=== PATIENT | female | born 1995 | race Caucasian/White ===

== ENCOUNTER 2016-10-25 10:57 | Emergency (ER) | payer OTHER ==
[~2016-10-25] VITALS: Ht 160 cm; Wt 82.2 kg
[2016-10-25 10:58] VITALS: BP 121/83
[2016-10-25] MEDS ORDERED: NAPR500T PO (11:57)
[2016-10-25] MEDS ORDERED: BACT800T5 PO (11:57)
[2016-10-25] MEDS ORDERED: NAPROXEN 250 MG TAB PO ONE (12:00)
[2016-10-25] MEDS ORDERED: BACTRIM 160MG/800MG DS TAB PO ONE (12:00)
== END 2016-10-25 12:13 | disposition home or self-care (01) ==
LOC: M ED 10:57
DX: L03.031 Cellulitis of right toe (principal); Z87.891 Personal history of nicotine dependence; Z79.899 Other long term (current) drug therapy; Z88.0 Allergy status to penicillin

== ENCOUNTER 2016-11-28 15:44 | Emergency (ER) | payer OTHER ==
[~2016-11-28] VITALS: Ht 160 cm; Wt 77.2 kg
[2016-11-28 15:44] VITALS: BP 112/77
[~2016-11-28 15:44] MED LIST: BACT800T5 PO; NAPR500T PO
== END 2016-11-28 19:04 | disposition left against medical advice (07) ==
LOC: M ED 15:44
DX: L60.9 Nail disorder, unspecified (principal); Z53.29 Procedure and treatment not carried out because of patient's decision for other reasons